=== PATIENT | male | born 2000 | race Caucasian/White ===

== ENCOUNTER 2019-06-16 19:44 | Emergency (ER) | payer MEDICAID ==
[~2019-06-16] VITALS: Ht 185.4 cm; Wt 135.2 kg
[~2019-06-16 19:44] MED LIST: TYL325 PO
[2019-06-16 21:51] VITALS: BP 148/71
== END 2019-06-16 21:51 | disposition home or self-care (01) ==
LOC: ED 19:44
DX: S01.01XA Laceration without foreign body of scalp, initial encounter (principal); Y04.0XXA Assault by unarmed brawl or fight, initial encounter; Y93.89 Activity, other specified; Y92.488 Other paved roadways as the place of occurrence of the external cause; Y99.8 Other external cause status
CPT/HCPCS: 90715; J2001

== ENCOUNTER 2019-06-23 12:34 | Emergency (ER) | payer MEDICAID ==
[~2019-06-23] VITALS: Ht 185.4 cm; Wt 133.8 kg
[2019-06-23 12:40] VITALS: BP 129/53; Ht 185.4 cm; Wt 133.8 kg
== END 2019-06-23 12:56 | disposition home or self-care (01) ==
LOC: ED 12:34
DX: S01.01XD Laceration without foreign body of scalp, subsequent encounter (principal); X58.XXXD Exposure to other specified factors, subsequent encounter